=== PATIENT | female | born 1985 | race Two or more races ===

== ENCOUNTER 2020-04-23 19:44 | Inpatient (IN) | payer OTHER ==
[~2020-04-23] VITALS: Ht 165.1 cm; Wt 119.5 kg
[2020-04-23 21:03] LABS: Basophils # (auto) 0 10 ^3/uL (0-0.2); Basophils % (auto) 0.3 % (0.0-2.0); Eosinophils # (auto) 0 10 ^3/uL (0-0.8); Hematocrit 42.6 % (36.0-46.0); Hemoglobin 15.3 g/dL (12.2-16.2); Lymphocytes # (auto) 0.9 10 ^3/uL (0.4-5.4); Lymphocytes % (auto) 32.6 % (10.0-50.0); Mean Corpuscular Hemoglobin 31.7 pg (28.0-32.0); Mean Corpuscular Volume 88.1 fL (80.0-100.0); Monocytes # (auto) 0.2 10 ^3/uL (0-1.3); Monocytes % (auto) 7.1 % (0.0-12.0); Neutrophils # (auto) 1.7 10 ^3/uL (1.6-8.6); Nucleated Red Blood Cells % 0.8 %; Platelet Count (auto) 167 10^3/uL (140-450); Red Blood Cells 4.83 10^6/uL (4.0-5.20); Red Cell Distribution Width 12.9 % (11.8-14.3); White Blood Cell 2.8 10^3/uL (4.4-10.8)
[2020-04-23 21:18] LABS: Albumin 3.3 g/dL (3.4-5.0); Anion Gap 6 (5-15); Blood Urea Nitrogen 14 mg/dL (7-18); Calcium 7.8 mg/dL (8.5-10.1); Carbon Dioxide 25 mmol/L (21-32); Chloride 102 mmol/L (98-107); Glucose 204 mg/dL (74-106); Potassium 3.3 mmol/L (3.5-5.1); Sodium 133 mmol/L (136-145)
[2020-04-23 21:20] LABS: INR 1.01 (0.9-1.15); Partial Thromboplastin Time 30.1 sec (23.0-31.2)
[2020-04-23 21:24] LABS: Alanine Aminotransferase 100 U/L (13-56); Alkaline Phosphatase 149 U/L (45-117); Aspartate Aminotransferase 69 U/L (15-37); BUN/Creatinine Ratio 23.3; Bilirubin, Total 0.5 mg/dL (0.2-1.0); GFR African American 149 mL/min; GFR Non-African American 123 mL/min; Total Protein 7.8 g/dL (6.4-8.2)
[2020-04-23] MEDS ORDERED: IOHEXOL 350 MG/ML 100ML IJ ONE (22:59)
[2020-04-24] MEDS ORDERED: DexAMETHasone SOD PHOS 10MG/1ML VIAL INJ IV ONE (00:30)
[2020-04-24] MEDS ORDERED: DOXYCYCLINE 100MG/250ML 250 ML IV ONE (00:30)
[2020-04-24] MEDS ORDERED: HYDROcodone-ACET 5/325MG TAB PO PRN (01:30)
[2020-04-24] MEDS ORDERED: NITROGLYCERIN 0.4 MG SL TAB SL PRN (01:30)
[2020-04-24] MEDS ORDERED: DEXTROSE (50%) 50ML SYRG IV PRN (01:30)
[2020-04-24] MEDS ORDERED: DOCUSATE SOD 100 MG CAP PO PRN (01:30)
[2020-04-24] MEDS ORDERED: ACETAMINOPHEN 500 MG TAB PO PRN (01:30)
[2020-04-24] MEDS ORDERED: MORPHINE SULF INJ 2 MG/ML SYRINGE 1ML IV PRN (01:30)
[2020-04-24] MEDS ORDERED: POTASSIUM CHL 20 Meq TABLET PO ONE (01:30)
[2020-04-24] MEDS ORDERED: ONDANSETRON HCL 4 MG/2 ML VIAL IV PRN (01:30)
[2020-04-24] MEDS: BUDESONIDE (INHALATION) 180 MCG IH IN SCH ×2 (06:10→21:40)
[2020-04-24] MEDS: SODIUM CHLOR 0.9% PF (SALINE LOCK) 10ML VIAL/SYR IV SCH ×3 (06:21→21:46)
[2020-04-24 06:29] LABS: Basophils # (auto) 0 10 ^3/uL (0-0.2); Basophils % (auto) 1.1 % (0.0-2.0); Eosinophils # (auto) 0 10 ^3/uL (0-0.8); Hematocrit 44.4 % (36.0-46.0); Hemoglobin 15.6 g/dL (12.2-16.2); Lymphocytes # (auto) 0.4 10 ^3/uL (0.4-5.4); Lymphocytes % (auto) 20.2 % (10.0-50.0); Mean Corpuscular Hemoglobin 31.2 pg (28.0-32.0); Mean Corpuscular Hgb Conc. 35.2 g/dL (32.0-36.0); Mean Corpuscular Volume 88.8 fL (80.0-100.0); Monocytes # (auto) 0.1 10 ^3/uL (0-1.3); Monocytes % (auto) 5.7 % (0.0-12.0); Neutrophils # (auto) 1.6 10 ^3/uL (1.6-8.6); Nucleated Red Blood Cells % 0.3 %; Platelet Count (auto) 171 10^3/uL (140-450); Red Cell Distribution Width 13.4 % (11.8-14.3); White Blood Cell 2.2 10^3/uL (4.4-10.8)
[2020-04-24 06:48] LABS: Albumin 3.6 g/dL (3.4-5.0); Calcium 8.5 mg/dL (8.5-10.1); Magnesium 2.2 mg/dL (1.6-2.6); Potassium 4.1 mmol/L (3.5-5.1)
[2020-04-24 06:52] LABS: BUN/Creatinine Ratio 18.4; Bilirubin, Total 0.6 mg/dL (0.2-1.0); Total Protein 8.4 g/dL (6.4-8.2)
[2020-04-24] MEDS: ACCU-CHEK COMFORT CURVE STRIP VI SCH ×4 (07:30→21:46)
[2020-04-24] MEDS: InsuLIN REG 1unit/0.01ml Soln (100units/ml) SC SCH ×4 (07:33→21:47)
[2020-04-24 09:50] VITALS: BP 124/78
[2020-04-24] MEDS: CHOLECALCIFEROL (VITD3) 2,000 UNIT CAP PO SCH (11:34)
[2020-04-24] MEDS: MULTIPLE VITAMIN TAB PO SCH (11:34)
[2020-04-24] MEDS: ASCORBIC ACID 1,000 MG TAB PO SCH (11:34)
[2020-04-24] MEDS: ZINC SULFATE 220mg CAP or TAB PO SCH (11:34)
[2020-04-24] MEDS: DexAMETHasone SOD PHOS 10MG/1ML VIAL INJ IV SCH (11:34)
[2020-04-24] MEDS: ENOXAPARIN SOD 40 MG/0.4 ML SYRINGE SC SCH ×2 (11:35→21:47)
[2020-04-24] MEDS: PANTOPRAZOLE 40 MG/10 ML VIAL INJ IV SCH (11:35)
[2020-04-24] MEDS: DOXYCYCLINE 100MG/250ML 250 ML IV SCH ×2 (11:35→21:46)
[2020-04-24] MEDS ORDERED: FUROSEMIDE 40 MG/4 ML VIAL IV ONE (14:30)
[2020-04-24] MEDS ORDERED: guaiFENesin-DM 100/10mg/5ml SYR PO PRN (15:00)
[2020-04-24 16:00] VITALS: BP 131/74
[2020-04-24] MEDS: ALBUTEROL SULF HFA 90MCG INH 200DOSE IN PRN (21:40)
[2020-04-24] MEDS ORDERED: ATORVASTATIN 20 MG TAB PO SCH (22:00)
[2020-04-25] VITALS: BP 101/58
[2020-04-25] MEDS: SODIUM CHLOR 0.9% PF (SALINE LOCK) 10ML VIAL/SYR IV SCH ×3 (05:43→22:11)
[2020-04-25] MEDS: ACCU-CHEK COMFORT CURVE STRIP VI SCH ×4 (06:23→22:12)
[2020-04-25] MEDS: InsuLIN REG 1unit/0.01ml Soln (100units/ml) SC SCH ×4 (06:23→22:16)
[2020-04-25] MEDS ORDERED: METF-370 PO (07:23)
[2020-04-25 07:30] LABS: Basophils # (auto) 0 10 ^3/uL (0-0.2); Basophils % (auto) 0.2 % (0.0-2.0); Eosinophils # (auto) 0 10 ^3/uL (0-0.8); Hematocrit 42.5 % (36.0-46.0); Hemoglobin 15.1 g/dL (12.2-16.2); Lymphocytes # (auto) 1.2 10 ^3/uL (0.4-5.4); Lymphocytes % (auto) 27.5 % (10.0-50.0); Mean Corpuscular Hemoglobin 31.2 pg (28.0-32.0); Mean Corpuscular Hgb Conc. 35.4 g/dL (32.0-36.0); Mean Corpuscular Volume 88.1 fL (80.0-100.0); Monocytes # (auto) 0.3 10 ^3/uL (0-1.3); Monocytes % (auto) 8.2 % (0.0-12.0); Neutrophils # (auto) 2.7 10 ^3/uL (1.6-8.6); Neutrophils % (auto) 64.1 % (37.0-80.0); Nucleated Red Blood Cells % 0.2 %; Platelet Count (auto) 224 10^3/uL (140-450); Red Blood Cells 4.83 10^6/uL (4.0-5.20); Red Cell Distribution Width 12.8 % (11.8-14.3); White Blood Cell 4.3 10^3/uL (4.4-10.8)
[2020-04-25 07:39] LABS: Albumin 3.4 g/dL (3.4-5.0); BUN/Creatinine Ratio 26.6; Calcium 8.2 mg/dL (8.5-10.1); Potassium 3.4 mmol/L (3.5-5.1)
[2020-04-25 07:42] LABS: Bilirubin, Total 0.6 mg/dL (0.2-1.0); Total Protein 7.8 g/dL (6.4-8.2)
[2020-04-25 08:00] VITALS: BP 106/72
[2020-04-25] MEDS: BUDESONIDE (INHALATION) 180 MCG IH IN SCH ×2 (10:41→21:10)
[2020-04-25] MEDS: DexAMETHasone SOD PHOS 10MG/1ML VIAL INJ IV SCH (10:41)
[2020-04-25] MEDS: ZINC SULFATE 220mg CAP or TAB PO SCH (10:42)
[2020-04-25] MEDS: FUROSEMIDE 20 MG/2 ML VIAL IV SCH ×2 (10:42→17:26)
[2020-04-25] MEDS: ASPirin 81 mg TAB PO SCH (10:42)
[2020-04-25] MEDS: PANTOPRAZOLE 40 MG/10 ML VIAL INJ IV SCH (10:42)
[2020-04-25] MEDS: DOXYCYCLINE 100MG/250ML 250 ML IV SCH ×2 (10:42→22:12)
[2020-04-25] MEDS: CHOLECALCIFEROL (VITD3) 2,000 UNIT CAP PO SCH (10:43)
[2020-04-25] MEDS: MULTIPLE VITAMIN TAB PO SCH (10:43)
[2020-04-25] MEDS: POTASSIUM CHL 20 Meq TABLET PO SCH ×2 (10:43→22:12)
[2020-04-25] MEDS: ASCORBIC ACID 1,000 MG TAB PO SCH (10:43)
[2020-04-25] MEDS: ENOXAPARIN SOD 40 MG/0.4 ML SYRINGE SC SCH ×2 (10:44→22:12)
[2020-04-25] MEDS ORDERED: REMDESIVIR PER PHARMACY 0 ML IV SCH (13:45)
[2020-04-25] MEDS ORDERED: POTASSIUM CHL 10 Meq TABLET PO ONE (13:45)
[2020-04-25] MEDS ORDERED: REMDESIVIR 200 MG in NS 210ml LOADING DOSE ADULT IV ONE (15:00)
[2020-04-25 16:00] VITALS: BP 117/65
[2020-04-25] MEDS: ALBUTEROL SULF HFA 90MCG INH 200DOSE IN PRN (21:10)
[2020-04-25] MEDS ORDERED: INSULIN LANTUS (GLARGINE) 1 /0.01ml (100units/ml) SC SCH (22:00)
[2020-04-26] VITALS: BP 96/56
[2020-04-26 00:03] VITALS: BP 96/56
[2020-04-26 05:45] VITALS: BP 104/64
[2020-04-26] MEDS: FUROSEMIDE 20 MG/2 ML VIAL IV SCH ×2 (06:13→18:18)
[2020-04-26] MEDS: SODIUM CHLOR 0.9% PF (SALINE LOCK) 10ML VIAL/SYR IV SCH ×3 (06:13→22:02)
[2020-04-26] MEDS: ACCU-CHEK COMFORT CURVE STRIP VI SCH ×4 (06:14→22:04)
[2020-04-26] MEDS: InsuLIN REG 1unit/0.01ml Soln (100units/ml) SC SCH ×4 (06:24→22:03)
[2020-04-26 07:57] LABS: Potassium 3.6 mmol/L (3.5-5.1)
[2020-04-26 08:00] VITALS: BP 105/69
[2020-04-26 08:15] LABS: BUN/Creatinine Ratio 33.3; Bilirubin, Total 0.5 mg/dL (0.2-1.0); CRP High Sensitivity 1.87 mg/dL (< 0.3); Calcium 8.1 mg/dL (8.5-10.1); Total Protein 7.2 g/dL (6.4-8.2)
[2020-04-26] MEDS: BUDESONIDE (INHALATION) 180 MCG IH IN SCH ×2 (10:00→20:20)
[2020-04-26] MEDS: ENOXAPARIN SOD 40 MG/0.4 ML SYRINGE SC SCH ×2 (10:59→22:04)
[2020-04-26] MEDS: DexAMETHasone SOD PHOS 10MG/1ML VIAL INJ IV SCH (11:00)
[2020-04-26] MEDS: ASPirin 81 mg TAB PO SCH (11:00)
[2020-04-26] MEDS: CHOLECALCIFEROL (VITD3) 2,000 UNIT CAP PO SCH (11:00)
[2020-04-26] MEDS: ASCORBIC ACID 1,000 MG TAB PO SCH (11:00)
[2020-04-26] MEDS: MULTIPLE VITAMIN TAB PO SCH (11:00)
[2020-04-26] MEDS: POTASSIUM CHL 20 Meq TABLET PO SCH ×2 (11:00→22:02)
[2020-04-26] MEDS: DOXYCYCLINE 100MG/250ML 250 ML IV SCH ×2 (11:01→22:02)
[2020-04-26] MEDS: PANTOPRAZOLE 40 MG/10 ML VIAL INJ IV SCH (11:49)
[2020-04-26] MEDS: ZINC SULFATE 220mg CAP or TAB PO SCH (12:40)
[2020-04-26] MEDS: REMDESIVIR 100 MG in SODIUM CHL 0.9% 250 ML IV SCH (14:40)
[2020-04-26 16:00] VITALS: BP 121/81
[2020-04-26] MEDS: ALBUTEROL SULF HFA 90MCG INH 200DOSE IN PRN (20:20)
[2020-04-26] MEDS: INSULIN LANTUS (GLARGINE) 1 /0.01ml (100units/ml) SC SCH (22:04)
[2020-04-27] VITALS: BP 100/52
[2020-04-27] MEDS: FUROSEMIDE 20 MG/2 ML VIAL IV SCH ×2 (05:45→18:05)
[2020-04-27] MEDS: SODIUM CHLOR 0.9% PF (SALINE LOCK) 10ML VIAL/SYR IV SCH ×3 (05:46→21:17)
[2020-04-27] MEDS: ACCU-CHEK COMFORT CURVE STRIP VI SCH ×4 (06:12→21:16)
[2020-04-27] MEDS: InsuLIN REG 1unit/0.01ml Soln (100units/ml) SC SCH ×4 (06:17→21:13)
[2020-04-27] MEDS: ALBUTEROL SULF HFA 90MCG INH 200DOSE IN PRN ×2 (06:52→20:29)
[2020-04-27] MEDS: BUDESONIDE (INHALATION) 180 MCG IH IN SCH ×2 (06:52→19:08)
[2020-04-27 08:00] VITALS: BP 108/72
[2020-04-27 08:09] LABS: Potassium 3.6 mmol/L (3.5-5.1)
[2020-04-27 08:54] LABS: Albumin 3.1 g/dL (3.4-5.0); BUN/Creatinine Ratio 37.5
[2020-04-27 08:57] LABS: Bilirubin, Total 0.4 mg/dL (0.2-1.0); Total Protein 7.2 g/dL (6.4-8.2)
[2020-04-27] MEDS: ASPirin 81 mg TAB PO SCH (10:00)
[2020-04-27] MEDS: PANTOPRAZOLE 40 MG/10 ML VIAL INJ IV SCH (10:00)
[2020-04-27] MEDS: MULTIPLE VITAMIN TAB PO SCH (10:32)
[2020-04-27] MEDS: DOXYCYCLINE 100MG/250ML 250 ML IV SCH ×2 (10:32→21:17)
[2020-04-27] MEDS: DexAMETHasone SOD PHOS 10MG/1ML VIAL INJ IV SCH (10:32)
[2020-04-27] MEDS: ZINC SULFATE 220mg CAP or TAB PO SCH (10:32)
[2020-04-27] MEDS: POTASSIUM CHL 20 Meq TABLET PO SCH ×2 (10:32→21:16)
[2020-04-27] MEDS: CHOLECALCIFEROL (VITD3) 2,000 UNIT CAP PO SCH (10:33)
[2020-04-27] MEDS: ASCORBIC ACID 1,000 MG TAB PO SCH (10:33)
[2020-04-27] MEDS: ENOXAPARIN SOD 40 MG/0.4 ML SYRINGE SC SCH ×2 (10:33→21:16)
[2020-04-27 16:00] VITALS: BP 100/72
[2020-04-27] MEDS: REMDESIVIR 100 MG in SODIUM CHL 0.9% 250 ML IV SCH (16:45)
[2020-04-27] MEDS ORDERED: ERGOCALCIFEROL 50,000 UNIT(1.25MG) CAP PO SCH (17:00)
[2020-04-27] MEDS: INSULIN LANTUS (GLARGINE) 1 /0.01ml (100units/ml) SC SCH (21:16)
[2020-04-28] VITALS: BP 96/54
[2020-04-28] MEDS: InsuLIN REG 1unit/0.01ml Soln (100units/ml) SC SCH ×3 (05:20→17:07)
[2020-04-28] MEDS: ACCU-CHEK COMFORT CURVE STRIP VI SCH ×3 (05:20→17:04)
[2020-04-28] MEDS: SODIUM CHLOR 0.9% PF (SALINE LOCK) 10ML VIAL/SYR IV SCH ×2 (05:20→14:00)
[2020-04-28] MEDS: FUROSEMIDE 20 MG/2 ML VIAL IV SCH ×2 (05:20→17:34)
[2020-04-28] MEDS: BUDESONIDE (INHALATION) 180 MCG IH IN SCH ×2 (06:42→20:17)
[2020-04-28] MEDS: ALBUTEROL SULF HFA 90MCG INH 200DOSE IN PRN ×2 (06:42→20:17)
[2020-04-28 08:00] VITALS: BP 102/57
[2020-04-28 08:17] LABS: Basophils # (auto) 0 10 ^3/uL (0-0.2); Basophils % (auto) 0.5 % (0.0-2.0); Eosinophils # (auto) 0 10 ^3/uL (0-0.8); Hematocrit 44.7 % (36.0-46.0); Hemoglobin 15.7 g/dL (12.2-16.2); Lymphocytes # (auto) 1.7 10 ^3/uL (0.4-5.4); Lymphocytes % (auto) 39.6 % (10.0-50.0); Mean Corpuscular Hemoglobin 31.4 pg (28.0-32.0); Mean Corpuscular Hgb Conc. 35.3 g/dL (32.0-36.0); Monocytes # (auto) 0.4 10 ^3/uL (0-1.3); Monocytes % (auto) 8.6 % (0.0-12.0); Neutrophils # (auto) 2.1 10 ^3/uL (1.6-8.6); Neutrophils % (auto) 51.3 % (37.0-80.0); Nucleated Red Blood Cells % 0.1 %; Platelet Count (auto) 295 10^3/uL (140-450); Red Blood Cells 5.02 10^6/uL (4.0-5.20); Red Cell Distribution Width 12.7 % (11.8-14.3); White Blood Cell 4.2 10^3/uL (4.4-10.8)
[2020-04-28 08:35] LABS: Albumin 3.2 g/dL (3.4-5.0); CRP High Sensitivity 0.89 mg/dL (< 0.3); Calcium 8.3 mg/dL (8.5-10.1); Potassium 3.5 mmol/L (3.5-5.1)
[2020-04-28 08:38] LABS: BUN/Creatinine Ratio 26.1; Bilirubin, Total 0.5 mg/dL (0.2-1.0); Total Protein 7.9 g/dL (6.4-8.2)
[2020-04-28] MEDS: DOXYCYCLINE 100MG/250ML 250 ML IV SCH (09:41)
[2020-04-28] MEDS: DexAMETHasone SOD PHOS 10MG/1ML VIAL INJ IV SCH (09:41)
[2020-04-28] MEDS: PANTOPRAZOLE 40 MG/10 ML VIAL INJ IV SCH (09:41)
[2020-04-28] MEDS: ASPirin 81 mg TAB PO SCH (09:42)
[2020-04-28] MEDS: MULTIPLE VITAMIN TAB PO SCH (09:43)
[2020-04-28] MEDS: ZINC SULFATE 220mg CAP or TAB PO SCH (09:43)
[2020-04-28] MEDS: POTASSIUM CHL 20 Meq TABLET PO SCH (09:43)
[2020-04-28] MEDS: ENOXAPARIN SOD 40 MG/0.4 ML SYRINGE SC SCH (09:44)
[2020-04-28] MEDS: ASCORBIC ACID 1,000 MG TAB PO SCH (09:44)
[2020-04-28] MEDS ORDERED: PANT40TA2 PO (10:31)
[2020-04-28] MEDS ORDERED: ASCO10003 PO (10:31)
[2020-04-28] MEDS ORDERED: ALBUAER3 IN (10:31)
[2020-04-28] MEDS ORDERED: DEX4T PO (10:31)
[2020-04-28] MEDS ORDERED: ASPI-378 PO (10:31)
[2020-04-28] MEDS ORDERED: DOXY-286 PO (10:31)
[2020-04-28] MEDS ORDERED: CHOL500033 PO (10:31)
[2020-04-28] MEDS ORDERED: ZINC220T6 PO (10:31)
[2020-04-28] MEDS ORDERED: BUDE2SUS3 IN (10:31)
[2020-04-28] MEDS ORDERED: METF-371 PO (10:44)
[2020-04-28] MEDS: REMDESIVIR 100 MG in SODIUM CHL 0.9% 250 ML IV SCH (15:07)
[2020-04-28 16:00] VITALS: BP 110/67
== END 2020-04-28 20:40 | disposition home or self-care (01) | DRG 871 ==
LOC: ER 19:44 → TELE 19:45 → TELE-EAST 04-24 11:04
PROVIDERS: ADMIT Nurse Practitioner Family; ATTEND Internal Medicine
PROC: XW033E5 Introduction of Remdesivir Anti-infective into Peripheral Vein, Percutaneous Approach, New Technology Group 5 (ICD-10-PCS; principal; 2020-04-25)
DX: A41.89 Other specified sepsis (principal); U07.1 COVID-19; J12.82 Pneumonia due to coronavirus disease 2019; J96.01 Acute respiratory failure with hypoxia; D68.59 Other primary thrombophilia; Z68.41 Body mass index [BMI] 40.0-44.9, adult; J98.11 Atelectasis; E11.9 Type 2 diabetes mellitus without complications; E55.9 Vitamin D deficiency, unspecified; E66.01 Morbid (severe) obesity due to excess calories; E87.6 Hypokalemia; K76.0 Fatty (change of) liver, not elsewhere classified; K80.20 Calculus of gallbladder without cholecystitis without obstruction; Z83.3 Family history of diabetes mellitus; Z90.49 Acquired absence of other specified parts of digestive tract; D89.839 Cytokine release syndrome, grade unspecified
CPT/HCPCS: 36415; 71045; 71275; 76705; 80053; 82306; 82728; 82962; 83036; 83605; 83615; 83735; 83880; 84443; 84484; 85025; 85379; 85610; 85730; 86141; 86850; 86900; 86901; 87040; 87426; 93970; 94640; 96365; 96366; 96375; G0378; J1100; J1815; J3490